=== PATIENT | male | born 1985 | race African-American/Black ===

== ENCOUNTER 2016-11-22 22:01 | Emergency (ER) | payer SELFPAY ==
[~2016-11-22] VITALS: Ht 188 cm; Wt 68.2 kg
[2016-11-22 22:20] VITALS: BP 146/81; TEMP 96.5
[2016-11-22] MEDS ORDERED: CELEXA40 MG PO (23:47)
[2016-11-22] MEDS ORDERED: TOPAMAX50 MG PO (23:47)
[2016-11-23 01:06] VITALS: PULSE 71
== END 2016-11-23 01:07 | disposition home or self-care (01) ==
LOC: COL.ER 22:01
DX: T23.471A Corrosion of unspecified degree of right wrist, initial encounter (principal); F17.210 Nicotine dependence, cigarettes, uncomplicated; Y92.69 Other specified industrial and construction area as the place of occurrence of the external cause